=== PATIENT | male | born 1965 | race American Indian/Alaskan Native ===

== ENCOUNTER 2016-07-28 07:43 | Day surgery (SDC) | payer OTHER ==
[2016-07-28 08:28] VITALS: BMI 25.1
[2016-07-28] MEDS ORDERED: Lactated Ringer's 500 ML IV ONE (10:05)
[2016-07-28 11:19] VITALS: TEMP 97.8
[2016-07-28 11:41] VITALS: BP 116/69; PULSE 67; RESP 19; O2SAT 100
== END 2016-07-28 11:40 | disposition home or self-care (01) ==
LOC: C.ENDO 07:43
PROVIDERS: ATTEND Internal Medicine Gastroenterology
DX: D12.5 Benign neoplasm of sigmoid colon (principal); K64.8 Other hemorrhoids; D12.4 Benign neoplasm of descending colon
CPT/HCPCS: 45388; 88305; J7120